=== PATIENT | female | born 1950 | race Caucasian/White ===

== ENCOUNTER 2017-11-03 09:27 | Emergency (ER) | payer OTHER ==
[2017-11-03] MEDS ORDERED: NS 1,000 ML IV ONE (09:59)
--- NOTE | 2017-11-03 10:00 | CPEKG ---
Heart Rate: 95 RR Interval: 632 P-R Interval: 132 QRSD Interval: 82 QT Interval: 364 QTC Interval: 458 P [place]: 81 QRS [place]: 48 T Wave [place]: 61 EKG Severity - OTHERWISE NORMAL ECG - EKG Impression: SINUS RHYTHM EKG Impression: MINIMAL ST DEPRESSION, DIFFUSE LEADS Electronically Signed By: Adam Cox 03-Nov-2017 10:01:44
--- NOTE | 2017-11-03 10:01 | EDPHY ---
H & P Stated Complaint: pt nauseated/tachycardic/states feels vertigo/htn Time Seen by Provider: 11/03/17 09:49 HPI/ROS: CHIEF COMPLAINT: High blood pressure HISTORY OF PRESENT ILLNESS: The patient is a 66-year-old female who comes to the emergency department complaining that her blood pressure is high and that she feels slightly lightheaded. She states that every time she goes to the doctor her blood pressure is high but she thought was white coat syndrome. This morning she felt thirsty and slightly lightheaded and noticed that her heartbeat was fast and that her blood pressure was high. She denies chest pain. She denies shortness of breath. No focal weakness or deficits. No headache. She states that she has a lot of anxiety and is currently in the middle of 3 deadlines. She does not take any medications. REVIEW OF SYSTEMS: Constitutional: denies: chills, fever, recent illness, recent injury EENTM: denies: blurred vision, double vision, nose congestion Respiratory: denies: cough, shortness of breath Cardiac: See HPI denies: chest pain, irregular heart rate, Gastrointestinal/Abdominal: denies: abdominal pain, diarrhea, nausea, vomiting, blood streaked stools Genitourinary: denies: dysuria, frequency, hematuria, pain Musculoskeletal: denies: joint pain, muscle pain Skin: denies: lesions, rash, jaundice, bruising Neurological: denies: headache, numbness, paresthesia, tingling, dizziness, weakness Hematologic/Lymphatic: denies: blood clots, easy bleeding, easy bruising Immunologic/allergic: denies: HIV/AIDS, transplant EXAM: GENERAL: Well-appearing, well-nourished and in no acute distress. HEAD: Atraumatic, normocephalic. EYES: Pupils equal round and reactive to light, extraocular movements intact, sclera anicteric, conjunctiva are normal. ENT: TMs normal, nares patent, oropharynx clear without exudates. Moist mucous membranes. NECK: Normal range of motion, supple without lymphadenopathy or JVD. LUNGS: Breath sounds clear to auscultation bilaterally and equal. No wheezes rales or rhonchi. HEART: Slightly tachycardic, Regular rate and rhythm without murmurs, rubs or gallops. ABDOMEN: Soft, nontender, normoactive bowel sounds. No guarding, no rebound. No masses appreciated. BACK: No CVA tenderness, no spinal tenderness, step-offs or deformities EXTREMITIES: Normal range of motion, no pitting or edema. No clubbing or cyanosis. NEUROLOGICAL: Cranial nerves II through XII grossly intact. Normal speech, normal gait. 5/5 strength, normal movement in all extremities, normal sensation PSYCH: Normal mood, normal affect. SKIN: Warm, dry, normal turgor, no visible rashes or lesions. Source: Patient Exam Limitations: No limitations - Personal History Current Tetanus/Diphtheria Vaccine: Yes - Medical/Surgical History Hx Asthma: No Hx Chronic Respiratory Disease: No Hx Diabetes: No Hx Cardiac Disease: No Hx Renal Disease: No Hx Cirrhosis: No Hx Alcoholism: No Hx HIV/AIDS: No Hx Splenectomy or Spleen Trauma: No Other PMH: denies - Family History Significant Family History: No pertinent family hx - Social History Smoking Status: Never smoked Alcohol Use: Sober Drug Use: None Constitutional: Initial Vital Signs Temperature (C) 36.4 C 11/03/17 09:29 Heart Rate 134 H 11/03/17 09:29 Respiratory Rate 20 11/03/17 09:29 Blood Pressure 189/101 H 11/03/17 09:29 O2 Sat (%) 99 11/03/17 09:29 O2 Delivery Mode Room Air Allergies/Adverse Reactions: metronidazole [From Flagyl] Allergy (Verified 11/03/17 09:29) Home Medications: Medication Instructions Recorded Metoprolol Succinate Xr [Toprol Xl 25 mg PO DAILY #14 tab.sr 11/03/17 25 mg (*)] Medical Decision Making - Diagnostics EKG Interpretation: An EKG obtained and was read and documented in trace view. Please see trace view for full reading and report. Sinus rhythm, no acute ischemic changes ED Course/Re-evaluation: 10:40 a.m. the patient's testing is reassuring. She states that she is feeling much better. She no longer feels dizzy or thirsty. She is receiving IV fluids. She is still slightly hypertensive. We agreed to start her on a small dose of blood pressure medicine and observed. She is also requesting a referral to a primary care doctor. She needs to urinate. She was able to walk to the bathroom without difficulty. 12:00 p.m. the patient remains feeling completely well. She is eager to go home. Her blood pressure has improved with metoprolol. I will give her a short prescription for this until she can follow up with the primary care provider. She is happy with this plan. She has been able to ambulate here in the ER without difficulty. No focal weakness. No chest pain. No shortness of breath. Differential Diagnosis: Partial list of the Differential diagnosis considered include but were not limited to; hypertension, anxiety, arrhythmia and although unlikely based on the history and physical exam, I also considered PE, acute coronary disease, CVA him, electrolyte abnormality, BPV. I discussed these differential diagnoses and the plan with the patient as well as the usual and expected course. The patient understands that the diagnosis is provisional and that in medicine we are not always correct and that further workup is often warranted. Usual and customary warnings were given. All of the patient's questions were answered. The patient was instructed to return to the emergency department should the symptoms at all worsen or return, otherwise to followup with the physician as we discussed. - Data Points Laboratory Results: Laboratory Results 11/03/17 09:50 11/03/17 09:50 11/03/17 11/03/17 09:50 09:50 WBC 6.40 10^3/uL 10^3/uL (3.80-9.50) RBC 5.05 10^6/uL 10^6/uL (4.18-5.33) Hgb 14.9 g/dL g/dL (12.6-16.3) Hct 44.8 % % (38.0-47.0) MCV 88.7 fL fL (81.5-99.8) MCH 29.5 pg pg (27.9-34.1) MCHC 33.3 g/dL g/dL (32.4-36.7) RDW 13.5 % % (11.5-15.2) Plt Count 224 10^3/uL 10^3/uL (150-400) MPV 9.1 fL fL (8.7-11.7) Neut % (Auto) 48.0 % % (39.3-74.2) Lymph % (Auto) 39.5 % % (15.0-45.0) [place] % (Auto) 9.8 % % (4.5-13.0) Eos % (Auto) 1.6 % % (0.6-7.6) Baso % (Auto) 0.9 % % (0.3-1.7) Nucleat RBC Rel Count 0.0 % % (0.0-0.2) Absolute Neuts (auto) 3.07 10^3/uL 10^3/uL (1.70-6.50) Absolute Lymphs (auto) 2.53 10^3/uL 10^3/uL (1.00-3.00) Absolute Monos (auto) 0.63 10^3/uL 10^3/uL (0.30-0.80) Absolute Eos (auto) 0.10 10^3/uL 10^3/uL (0.03-0.40) Absolute Basos (auto) 0.06 10^3/uL 10^3/uL (0.02-0.10) Absolute Nucleated RBC 0.00 10^3/uL 10^3/uL (0-0.01) Immature Gran % 0.2 % % (0.0-1.1) Immature Gran # 0.01 10^3/uL 10^3/uL (0.00-0.10) Sodium 141 mEq/L mEq/L (135-145) Potassium 3.8 mEq/L mEq/L (3.5-5.2) Chloride 104 mEq/L mEq/L (97-110) Carbon Dioxide 23 mEq/l mEq/l (22-31) Anion Gap 14 mEq/L mEq/L (8-16) BUN 17 mg/dL mg/dL (7-23) Creatinine 0.8 mg/dL mg/dL (0.6-1.0) Estimated GFR > 60 Glucose 93 mg/dL mg/dL (70-100) Calcium 9.2 mg/dL mg/dL (8.5-10.4) Troponin I < 0.012 ng/mL ng/mL (0.000-0.034) Medications Given: Discontinued Medications Sodium Chloride (Ns) 1,000 mls @ 0 mls/hr IV EDNOW ONE; Wide Open PRN Reason: Protocol Stop: 11/03/17 10:00 Last Admin: 11/03/17 10:11 Dose: 1,000 mls Metoprolol Succinate (Toprol Xl) 25 mg PO EDNOW ONE Stop: 11/03/17 10:40 Last Admin: 11/03/17 10:45 Dose: 25 mg Departure - Departure Disposition: Home, Routine, Self-Care Clinical Impression: Hypertension Qualifiers: Hypertension type: unspecified Qualified Code(s): I10 - Essential (primary) hypertension Condition: Fair Instructions: Hypertension (ED) Referrals: NONE *PRIMARY CARE P,. [Primary Care Provider] - As per Instructions Patricia Lozoya MD [Medical Doctor] - As per Instructions Prescriptions: Metoprolol Succinate Xr [Toprol Xl 25 mg (*)] 25 mg PO DAILY #14 tab.sr
[2017-11-03 10:05] LABS: PLATELET COUNT 224 10^3/uL (150-400)
[2017-11-03] MEDS ORDERED: METOPROLOL SUCCINATE XR 25 MG TAB PO ONE (10:39)
[2017-11-03 12:20] VITALS: BP 144/85; PULSE 86; RESP 15; TEMP 97.9; O2SAT 98
== END 2017-11-03 12:21 | disposition home or self-care (01) ==
DX: I10 Essential (primary) hypertension (principal); E86.9 Volume depletion, unspecified